=== PATIENT | male | born 1950 | race Caucasian/White ===

== ENCOUNTER 2023-10-30 07:17 | Day surgery (SDC) | payer MEDICARE, MEDICAID ==
[2023-10-30] VITALS (10 sets, daily range): BP systolic 105–155; BP diastolic 52–86; PULSE 60–70; RESP 11–20; TEMP 97.5; O2SAT 92–99
[~2023-10-30] VITALS: Ht 188 cm; Wt 82.3 kg
[~2023-10-30 07:17] MED LIST: NO HOME MEDS
[2023-10-30] MEDS ORDERED: diphenhydrAMINE 25mg capsule PO ONE (07:40)
[2023-10-30] MEDS ORDERED: atropine 0.1mg/ml 10ml syringe IV ONE (07:40)
[2023-10-30] MEDS ORDERED: amiodarone 150mg/dext, iso-os 100 ML IV ONE (07:40)
[2023-10-30] MEDS ORDERED: AMIO200T27 PO (07:51)
[2023-10-30] MEDS ORDERED: ROSU20TA73 PO (07:51)
[2023-10-30] MEDS ORDERED: ASPI-1265 PO (07:51)
[2023-10-30] MEDS ORDERED: APIX5TAB3 PO (07:51)
[2023-10-30] MEDS ORDERED: PANT-47 PO (07:51)
[2023-10-30] MEDS: LORazepam 0.5 MG tablet PO ONE (08:31)
[2023-10-30 08:44] LABS: PROTHROMBIN TIME 11.1 SECONDS (9.0-12.0)
[2023-10-30] MEDS: morphine 10mg/ml inj. IV ONE (09:26)
[2023-10-30] MEDS: MIDAZolam 1mg/ml 10ml vial IV ONE (09:26)
== END 2023-10-30 10:38 | disposition home or self-care (01) ==
LOC: SSTAY O 07:17
PROVIDERS: ATTEND Internal Medicine Cardiovascular Disease
DX: I48.91 Unspecified atrial fibrillation (principal); I48.92 Unspecified atrial flutter; I25.10 Atherosclerotic heart disease of native coronary artery without angina pectoris; I50.22 Chronic systolic (congestive) heart failure; E78.5 Hyperlipidemia, unspecified; I42.0 Dilated cardiomyopathy; Z95.1 Presence of aortocoronary bypass graft; Z79.82 Long term (current) use of aspirin; Z79.01 Long term (current) use of anticoagulants; Z88.0 Allergy status to penicillin; Z95.2 Presence of prosthetic heart valve; Z79.899 Other long term (current) drug therapy
CPT/HCPCS: 36415; 85610; 92960; 93005; J2250; J2274; J7030; A4620